=== PATIENT | female | born 1980 | race Caucasian/White ===

== ENCOUNTER 2017-04-17 05:13 | Day surgery (SDC) | payer OTHER ==
[2017-04-11 10:49] VITALS: BMI 21.4
--- NOTE | 2017-04-17 10:33 | HP ---
History & Physical Update - History History: No Change - Physical Physical: No Change - Assessment Assessment: No Change - Plan Plan: No Change (Consented for Hysteroscopy, Myomectomy, dialation and curettage All questions answered, risks and benefits explained)
[2017-04-17] MEDS ORDERED: KETOROLAC TROMETHAMINE 30 MG/1 ML VIAL ONE (11:14)
[2017-04-17] MEDS ORDERED: LIDOCAINE HCL/PF 2% SDV 5ML VIAL ONE (11:14)
[2017-04-17] MEDS ORDERED: PROPOFOL 20 ML ONE ×2 (11:15→11:16)
[2017-04-17] MEDS ORDERED: MIDAZOLAM HCL 2 MG/2 ML SINGLE DOSE VIAL ONE (11:17)
[2017-04-17] MEDS ORDERED: SILVER NITRATE 75% APPLIC STCK 1 PKT EACH TP ONE (12:18)
[2017-04-17] MEDS ORDERED: IBUPROFEN 800 MG/8 ML IJ IVPB PRN (12:32)
[2017-04-17] MEDS ORDERED: IBUPROFEN 600 MG TABLET (FP) PO PRN (12:32)
[2017-04-17] MEDS ORDERED: ONDANSETRON 4 MG/2 ML VIAL IVPB PRN (12:32)
[2017-04-17] MEDS ORDERED: oxyCODONE HCL 5 MG TABLET PO PRN ×2 (12:32→12:33)
[2017-04-17] MEDS ORDERED: ONDANSETRON 4 MG/2 ML VIAL IVPUSH PRN (12:33)
--- NOTE | 2017-04-17 12:37 | OP ---
Operative Note - Note: Operative Date: 04/17/17 Pre-Operative Diagnosis: 37yo P1 with Irregular menses, submucosal fibroid on US Operation: Hysteroscopy, Polypectomy, D&C Findings: Normal uterine contour, Bilateral [place] visualized Endometrial polyp removed Post-Operative Diagnosis: Other (Endometrial polyp) Surgeon: Kori Cummings Anesthesiologist/BUSINESS DEPARTMENT CHAIR: Geoffrey Mendoza Anesthesia: MAC Specimens Removed: 1. Endometrial curettings. 2. Endometrial polyp Estimated Blood Loss (mls): 25 Drains & Tubes with Location: Fluid deficit - 140cc Drains, Volume Out (mls): 300 Fluid Volume Replaced (mls): 900 Operative Report Dictated: Yes
[2017-04-17] MEDS ORDERED: ELECTROLYTE-148 SOLN 1,000 ML IV SCH (12:45)
[2017-04-17 13:32] VITALS: TEMP 98
[2017-04-17 14:45] VITALS: BP 103/69; PULSE 65
--- NOTE | 2017-04-18 09:07 | OP ---
DATE OF OPERATION: 04/17/2017 PREOPERATIVE DIAGNOSIS: A 37-year-old para 1 with irregular menses, and submucosal fibroids on ultrasound. POSTOPERATIVE DIAGNOSIS: Endometrial polyp. No submucosal fibroid identified. PROCEDURE PERFORMED: Hysteroscopy, polypectomy, dilatation and curettage. SURGEON: Sirisha Penny M.D. ANESTHESIOLOGIST: Geoffrey Mendoza M.D. ANESTHESIA: MAC. FINDINGS: Normal uterine contour. Bilateral ostia visualized. Endometrial polyp removed. SPECIMEN REMOVED: 1. Endometrial curettings. 2. Endometrial polyp. DESCRIPTION OF PROCEDURE: After ensuring informed consent, the patient was brought to the operating room, where she was placed in the dorsal lithotomy position. After the resectoscope was assembled, primed and white balanced, the cervix was visualized by placing a Piper speculum into the vagina. The anterior cervical lip was articulated with a single-tooth tenaculum, and the cervix was dilated to accommodate the 10-mm hysteroscope with Reich dilators to 29 gauge, without difficulty. The hysteroscope was introduced into the uterus. Uterine survey was achieved, with the findings noted above. The hysteroscope was subsequently removed and gentle curettage was performed, as well as removal of the endometrial polyp with a sharp curette. All specimens removed and sent for pathology. The hysteroscope was introduced once more. The uterus was found to be intact. The lining was thinned out and smooth. However, some small pieces of endometrial lining were found to be floating inside the uterus. So suction of the uterine contents was performed with a plastic suction curette. Subsequently, all instruments were removed from the cervix and the vagina. Excellent hemostasis was achieved using silver nitrate on the anterior cervical lip. Estimated blood loss was 25 mL. Urine output was 300 mL. Fluid deficit was 140 mL. The patient received 900 mL of IV fluids. The patient tolerated the procedure well. She was extubated, repositioned into the supine position. All instrument and sponge counts were correct x2. The patient was brought to the recovery room in stable condition. SIRISHA PENNY M.D. [id number]
--- NOTE | 2017-04-18 12:01 | PATH ---
Surgical Pathology Report Patient Name: GOMEZ ORTIZ [facility]. Rec. #: [id number] /Age/Gender: 1980 (Age: 37) / F Account: [id number] Location: [facility] SURGICAL Taken: 04/17/2017 Received: 04/17/2017 Reported: 04/18/2017 Physicians: Kori Cummings M.D. Specimen(s) Received A: ENDOMETRIAL CURETTINGS B: ENDOMETRIUM POLYPS Clinical History Submucosal leiomyoma of uterus Endometrial polyps Final Diagnosis A. ENDOMETRIUM, CURETTING: PROLIFERATIVE ENDOMETRIUM. NO ENDOMETRIAL HYPERPLASIA OR CARCINOMA IDENTIFIED. B. ENDOMETRIUM, POLYPECTOMY: PROLIFERATIVE ENDOMETRIUM. NO ENDOMETRIAL HYPERPLASIA OR CARCINOMA IDENTIFIED. Comment: Recommend correlation with clinical findings and follow up as clinically indicated. Electronically Signed Blaine Cartagena M.D. Gross Description A. Received in formalin labelled "endometrial curetting" is a 2.5 x 2.0 x 0.3 cm aggregate of red tissue fragments. Totally submitted one cassette. B. Received in formalin labelled "endometrial polyps" is a 2 x 2 x 0.3 cm aggregate of francis tissue fragments. Totally submitted one cassette. [facility]/04/17/2017 [facility]/04/17/2017
== END 2017-04-17 14:45 | disposition home or self-care (01) ==
LOC: JASU-SURG 05:13
PROVIDERS: ATTEND Obstetrics & Gynecology
PROC: 0UDB8ZX Extraction of Endometrium, Via Natural or Artificial Opening Endoscopic, Diagnostic (ICD-10-PCS; 2017-04-17)
PROC: 0UB98ZX Excision of Uterus, Via Natural or Artificial Opening Endoscopic, Diagnostic (ICD-10-PCS; principal; 2017-04-17 10:00)
DX: N93.9 Abnormal uterine and vaginal bleeding, unspecified (principal); N84.0 Polyp of corpus uteri
CPT/HCPCS: 84703; 88305-TC; 94760

== ENCOUNTER 2019-09-16 05:09 | Day surgery (SDC) | payer OTHER ==
[2019-09-15 08:52] VITALS: BMI 23.1
[2019-09-16] MEDS ORDERED: MIDAZOLAM HCL 2 MG/2 ML SINGLE DOSE VIAL ONE (07:22)
[2019-09-16] MEDS ORDERED: PROPOFOL 20 ML ONE ×3 (07:22→07:59)
[2019-09-16] MEDS ORDERED: DEXAMETHASONE SOD PHOSPHATE 4 MG/1 ML VIAL ONE ×2 (07:22→07:53)
[2019-09-16] MEDS ORDERED: ONDANSETRON 4 MG/2 ML VIAL IVPUSH PRN (07:32)
[2019-09-16] MEDS ORDERED: IBUPROFEN 600 MG TABLET (FP) PO PRN (07:32)
[2019-09-16] MEDS ORDERED: oxyCODONE HCL 5 MG TABLET PO PRN (07:32)
[2019-09-16] MEDS ORDERED: IBUPROFEN 800 MG/8 ML IJ IVPB PRN (07:32)
--- NOTE | 2019-09-16 07:32 | HP ---
History & Physical Update - History History: No Change - Physical Physical: No Change - Assessment Assessment: No Change - Plan Plan: No Change (Consent signed and witnessed Procedure discussed, all questions answered)
--- NOTE | 2019-09-16 07:32 | OP ---
Operative Note - Note: Operative Date: 09/16/19 Pre-Operative Diagnosis: 39yo P1 with irregular bleeding, suspected Endometrial polyp Operation: Hysteroscopy, Polypectomy, D&C Findings: 1. [place] appearing Endometrium 2. Small Endometrial and Cervical polyps - removed Post-Operative Diagnosis: Same as Pre-op Surgeon: Kori Cummings Anesthesiologist/SPD TECH: Aquiles Lozano Anesthesia: General Specimens Removed: Endometrial curettings with Endometrial and Endocervical polyp Estimated Blood Loss (mls): 10 Instrument used (Debridements only): Symphion Drains & Tubes with Location: Fluid Defficit - 300cc Drains, Volume Out (mls): 250 Fluid Volume Replaced (mls): 500 Operative Report Dictated: Yes
[2019-09-16] MEDS ORDERED: ELECTROLYTE-148 SOLN 1,000 ML IV SCH (07:45)
[2019-09-16] MEDS ORDERED: LIDOCAINE HCL/PF 2% SDV 5ML VIAL ONE (07:53)
[2019-09-16] MEDS ORDERED: KETOROLAC TROMETHAMINE 30 MG/1 ML VIAL ONE (08:15)
[2019-09-16] MEDS ORDERED: LACTATED RINGERS SOLUTION 1,000 ML IV SCH (09:30)
--- NOTE | 2019-09-16 10:45 | OP ---
DATE OF OPERATION: 09/16/2019 PREOPERATIVE DIAGNOSIS: A 39-year-old para 1 with irregular bleeding suspected endometrial polyp. POSTOPERATIVE DIAGNOSIS: A 39-year-old para 1 with irregular bleeding suspected endometrial polyp. OPERATION: Hysteroscopy, polypectomy, dilation and curettage. FINDINGS: appearing endometrium and small endometrial and cervical polyps removed. SURGEON: Kori Cummings MD ANESTHESIOLOGIST: Aquiles Lozano MD ANESTHESIA: General. SPECIMENS REMOVED: Endometrial curettings with endometrial and endocervical polyps. ESTIMATED BLOOD LOSS: 10 mL DESCRIPTION OF THE OPERATIVE PROCEDURE: After assuring informed consent, patient was brought to the operating room where she was placed in dorsal lithotomy position. The urine was drained sterilely. The Symphion hysteroscope assembled by balanced and primed. The anterior cervical lip was visualized by placing Piper retractors into the vagina and articulated with single-tooth tenaculum. Cervix gradually dilated with 2 dilators to allow 6.3 mm Symphion hysteroscope to enter without any difficulty. Anteverted uterus noted. Intrauterine and cervical contents were visualized as described above. The Symphion resectoscope was introduced through the operative channel and resection of endometrium and endocervical polyps was performed without any difficulty. Subsequently, all instruments were removed from uterus, cervix and vagina. Excellent hemostasis was noted. ESTIMATED BLOOD LOSS: 10 mL. FLUID DEFICIT: 300 mL. Fluid received by patient was 500 mL and patient drained 200 mL of urine at the beginning of the procedure. All instrument count and sponges were correct x2. Patient was brought to the recovery room extubated in stable condition. Nicolle [id number]
[2019-09-16 14:28] VITALS: BP 117/68; PULSE 77; TEMP 97.8
--- NOTE | 2019-09-17 16:30 | PATH ---
Surgical Pathology Report Patient Name: GOMEZ ORTIZ Med. Rec. #: [id number] /Age/Gender: 1980 (Age: 39) / F Account: [id number] Location: [facility] SURGICAL Taken: 09/16/2019 Received: 09/16/2019 Reported: 09/17/2019 Physicians: Kori Cummings M.D. Specimen(s) Received ENDOMETRIAL POLYP AND CURETTINGS Clinical History Irregular menstruation Final Diagnosis ENDOMETRIAL POLYPS AND CURETTINGS: FRAGMENTS OF SECRETORY TYPE ENDOMETRIUM. FEW SEPARATE FRAGMENTS OF SMOOTH MUSCLE, MAY REPRESENT A SUBMUCOSAL LEIOMYOMA IN THE PROPER CLINICAL SETTINGS. Electronically Signed Shane Gann M.D. Gross Description Received in formalin labeled "endometrial polyps and curettings," is a 4.3 x 3.2 x 0.3 cm aggregate of francis soft tissue fragments admixed with mucus. The formalin is filtered and the specimen is entirely submitted in 2 cassettes. /09/16/2019 [place]/09/16/2019
== END 2019-09-16 11:15 | disposition home or self-care (01) ==
LOC: JASU-SURG 05:09
PROVIDERS: ATTEND Obstetrics & Gynecology
PROC: 0UDB7ZX Extraction of Endometrium, Via Natural or Artificial Opening, Diagnostic (ICD-10-PCS; 2019-09-16)
PROC: 0UJD8ZZ Inspection of Uterus and Cervix, Via Natural or Artificial Opening Endoscopic (ICD-10-PCS; 2019-09-16)
PROC: 0UBC7ZX Excision of Cervix, Via Natural or Artificial Opening, Diagnostic (ICD-10-PCS; principal; 2019-09-16 07:30)
PROC: 0UB97ZX Excision of Uterus, Via Natural or Artificial Opening, Diagnostic (ICD-10-PCS; 2019-09-16 07:30)
DX: N93.9 Abnormal uterine and vaginal bleeding, unspecified (principal); N84.0 Polyp of corpus uteri; N84.1 Polyp of cervix uteri
CPT/HCPCS: 88305-TC; 94760